=== PATIENT | female | born 1990 | race Hispanic/Latino ===

== ENCOUNTER 2017-01-02 11:43 | Emergency (ER) | payer SELFPAY ==
[2017-01-02 11:49] VITALS: O2SAT 100
--- NOTE | 2017-01-02 12:24 | ED PDOC ---
HPI: Female Pain Time Seen by Provider: 01/02/17 12:00 Chief Complaint (Nursing): Female Genitourinary Chief Complaint (Provider): abdominal pain History Per: Patient (26 y/o female h/o IUD since 2007 here with right lower quadrant pain gradual onset since yesterday while walking. Notes vaginal bleeding (menses 1 week early). Denies any dysuria/fevers/chills. No h/o sx. Has had chlamydia 7 years prior.) Past Medical History Reviewed: Historical Data, Nursing Documentation, Vital Signs Vital Signs: Last Vital Signs Temp 98.1 F 01/02/17 11:45 Pulse 97 H 01/02/17 11:45 Resp 19 01/02/17 11:45 BP 139/55 L 01/02/17 11:45 Pulse Ox 100 01/02/17 11:45 - Family History Family History: States: No Known Family Hx - Home Medications Home Medications: Ambulatory Orders Medication Instructions Recorded No Known Home Med 01/02/17 - Allergies Allergies/Adverse Reactions: Allergies Allergy/AdvReac Type Severity Reaction Status Date / Time No Known Allergies Allergy Verified 01/02/17 11:48 Review of Systems ROS Statement: Except As Marked, All Systems Reviewed And Found Negative Gastrointestinal: Positive for: Abdominal Pain Genitourinary Female: Positive for: Vaginal Bleeding Physical Exam - Reviewed Nursing Documentation Reviewed: Yes Vital Signs Reviewed: Yes - Physical Exam Appears: Positive for: Well, Non-toxic, No Acute Distress Head Exam: Positive for: ATRAUMATIC, NORMAL INSPECTION, NORMOCEPHALIC Skin: Positive for: Normal Color, Warm, DRY Eye Exam: Positive for: EOMI, Normal appearance, PERRL ENT: Positive for: Normal ENT Inspection Neck: Positive for: Normal, Painless ROM Cardiovascular/Chest: Positive for: Regular Rate, Rhythm Respiratory: Positive for: CNT, Normal Breath Sounds Gastrointestinal/Abdominal: Positive for: Normal Exam, Bowel Sounds, Soft Pelvic Exam: Positive for: Active Bleeding, Other (mild right adnexal tenderness.) Back: Positive for: Normal Inspection Extremity: Positive for: Normal ROM Neurologic/Psych: Positive for: Alert, Oriented - Laboratory Results Result Diagrams: 01/02/17 12:30 01/02/17 12:30 Urine POC: Positive - ECG O2 Sat by Pulse Oximetry: 100 - Progress ED Course And Treament: US PELVIC: (+) bilateral ovarian cyst complex 3cm approx; no iup noted A negative d/w Dr. Monzon who will be in ED to evaluate patient. Rhogam ordered. Patient would like to pursue . To early to determine whether this is ectopic. IUD removed by Dr. Monzon. Patient to f/u tuesday with her in office for repeat beta/evaluation. Disposition - Clinical Impression Clinical Impression: Threatened miscarriage in early - Patient ED Disposition Is Patient to be Admitted: No - Disposition Referrals: Jenelle Monzon MD [Staff Provider] - Disposition: Routine/Home Disposition Time: 16:55 Condition: FAIR Additional Instructions: FOLLOW UP WITH [facility] ON TUESDAY RETURNING FOR WORSENING PAIN/BLEEDING. Instructions: Threatened Miscarriage (ED)
[2017-01-02] MEDS ORDERED: Sodium Chloride 0.9% 1,000 ML IV STA (12:26)
[2017-01-02 13:30] LABS: BASO % 0.5 % (0.0-2.0); EOS % 0.6 % (0.0-4.0); HEMOGLOBIN 12.5 g/dL (12.0-16.0); LYMPH # 1.6 K/uL (1.0-4.3); LYMPH % 26.9 % (20.0-40.0); MEAN CORPUSCULAR HEMOGLOBIN 29.8 pg (27.0-31.0); MEAN CORPUSCULAR HGB CONC 33.2 g/dL (33.0-37.0); MEAN PLATELET VOLUME 8.2 fl (7.2-11.7); MONO # 0.6 K/uL (0.0-0.8); MONO % 10.6 % (0.0-10.0); NEUT # 3.7 K/uL (1.8-7.0); NEUT % 61.4 % (50.0-75.0); RBC 4.18 Mil/uL (3.80-5.20); RED CELL DISTRIBUTION WIDTH 13.5 % (11.5-14.5); WHITE BLOOD COUNT 6.1 K/uL (4.8-10.8)
--- NOTE | 2017-01-02 13:34 | US ---
Indication: Rule out ectopic Comparison: None available Technique: Transvaginal pelvic ultrasound. Findings: The uterus measures approximately 8.0 x 5.7 x 5.1 cm. Retroverted. Cervix length measures approximately 4.1 cm. Endometrium measures approximately 1.5 cm in diameter. IUD is present. No evidence of intrauterine gestational sac. The right ovary measures 5.0 x 2.0 x 3.0 cm and contains 2.8 x 3.5 x 3.0 cm complex cyst. The left ovary measures 5.2 x 4.4 x 3.4 cm and contains 2.9 x 3.1 x 2.3 cm complex cyst. Flow was demonstrated to both ovaries. Small pelvic free fluid. Impression: IUD present and appears in grossly satisfactory position. . No evidence of intrauterine gestational sac. If indeed the patient is based on serum beta HCG values, the sonographic findings represent either: Very early IUP; embryonic demise; ectopic gestation. Follow-up with serial quantitative serum beta HCG measurements and post OBGYN follow-up as clinically indicated, since ectopic gestation cannot be excluded based only on sonographic findings. 3.5 cm right and 3.1 cm left complex ovarian cysts. Small pelvic free fluid.
[2017-01-02 13:40] LABS: ALB/GLOB RATIO 1.7 (1.0-2.1); ALBUMIN 4.5 g/dL (3.5-5.0); ALT/SGPT 33 U/L (9-52); AST/SGOT 29 U/L (14-36); BLOOD UREA NITROGEN 7 mg/dl (7-17); CALCIUM 9.2 mg/dL (8.4-10.2); GFR AFRICAN-AMERICAN > 60; GFR NON-AFRICAN AMERICAN > 60
[2017-01-02 14:07] VITALS: BP 131/77; PULSE 80; RESP 18; TEMP 98
--- NOTE | 2017-01-02 16:41 | CP.PCM.CON ---
History of Present Illness - History of Present Illness History of Present Illness: Patient is a 26 yo nullparous female presenting with right sided abdominal pain. patient reports the pain started this morning, no nausea, no vomiting, no fever, some vaginal bleeding, patient is due for period next week, no SOB, no CP Past Patient History - Infectious Disease Hx of Infectious Diseases: None - Past Social History Smoking Status: Never Smoked - CARDIAC Hx Cardiac Disorders: No - PULMONARY Hx Respiratory Disorders: No - NEUROLOGICAL Hx Neurological Disorder: No - HEENT Hx HEENT Problems: No - RENAL Hx Chronic Kidney Disease: No - ENDOCRINE/METABOLIC Hx Endocrine Disorders: No - HEMATOLOGICAL/ONCOLOGICAL Hx Blood Disorders: No - INTEGUMENTARY Hx Dermatological Problems: No - MUSCULOSKELETAL/RHEUMATOLOGICAL Hx Musculoskeletal Disorders: No - GASTROINTESTINAL Hx Gastrointestinal Disorders: No - GENITOURINARY/GYNECOLOGICAL Hx Genitourinary Disorders: No - PSYCHIATRIC Hx Psychophysiologic Disorder: No Hx Substance Use: No - SURGICAL HISTORY Hx Surgeries: No - ANESTHESIA Hx Anesthesia: No Hx Anesthesia Reactions: No Hx Malignant Hyperthermia: No Meds Allergies/Adverse Reactions: Allergies Allergy/AdvReac Type Severity Reaction Status Date / Time No Known Allergies Allergy Verified 01/02/17 11:48 Physical Exam - Constitutional Appears: Well, Non-toxic - Head Exam Head Exam: ATRAUMATIC, NORMAL INSPECTION - Respiratory Exam Respiratory Exam: Clear to Auscultation Bilateral, NORMAL BREATHING PATTERN - Cardiovascular Exam Cardiovascular Exam: REGULAR RHYTHM, +S1, +S2 - GI/Abdominal Exam GI & Abdominal Exam: Normal Bowel Sounds, Soft Additional comments: non tender, non-distended, soft, no gaurding - Exam Additional comments: +strings noted at os, brownish discharge, no masses, no adnexal tenderness - Extremities Exam Extremities exam: Positive for: normal inspection Results - Vital Signs Recent Vital Signs: Last Vital Signs Temp 98.0 F 01/02/17 14:06 Pulse 80 01/02/17 14:06 Resp 18 01/02/17 14:06 BP 131/77 01/02/17 14:06 Pulse Ox 100 01/02/17 15:11 - Labs Result Diagrams: 01/02/17 12:30 01/02/17 12:30 Labs: Laboratory Results - last 24 hr 01/02/17 01/02/17 01/02/17 12:30 12:30 12:30 WBC 6.1 RBC 4.18 Hgb 12.5 Hct 37.6 MCV 90.0 MCH 29.8 MCHC 33.2 RDW 13.5 Plt Count 240 MPV 8.2 Neut % (Auto) 61.4 Lymph % (Auto) 26.9 [place] % (Auto) 10.6 H Eos % (Auto) 0.6 Baso % (Auto) 0.5 Neut # 3.7 Lymph # 1.6 [place] # 0.6 Eos # 0.0 Baso # 0.0 Sodium 137 Potassium 4.0 Chloride 107 Carbon Dioxide 21 L Anion Gap 13 BUN 7 Creatinine 0.7 Est GFR ( Amer) > 60 Est GFR (Non-Af Amer) > 60 Random Glucose 84 Calcium 9.2 Total Bilirubin 0.4 AST 29 ALT 33 Alkaline Phosphatase 39 Total Protein 7.3 Albumin 4.5 Globulin 2.7 Albumin/Globulin Ratio 1.7 Beta HCG, Quant 385.42 Blood Type Blood Type Confirm Antibody Screen BBK History Checked 01/02/17 01/02/17 12:30 13:13 WBC RBC Hgb Hct MCV MCH MCHC RDW Plt Count MPV Neut % (Auto) Lymph % (Auto) [place] % (Auto) Eos % (Auto) Baso % (Auto) Neut # Lymph # [place] # Eos # Baso # Sodium Potassium Chloride Carbon Dioxide Anion Gap BUN Creatinine Est GFR ( Amer) Est GFR (Non-Af Amer) Random Glucose Calcium Total Bilirubin AST ALT Alkaline Phosphatase Total Protein Albumin Globulin Albumin/Globulin Ratio Beta HCG, Quant Blood Type A NEGATIVE Blood Type Confirm A NEGATIVE Antibody Screen Negative BBK History Checked No verified bt Assessment & Plan - Assessment and Plan (Free Text) Assessment: A/P 29 yo nullparous female with of unknown location 1. Patient presented with right sided abdominal pain, on ultrasound, noted that patient has 2-3 complex cysts bilaterally. Each ovary is measuring around 5cm. Patient has Copper IUD in place, inserted in 2008. U/S shows that IUD is in correct position. BHCG = 385. 2. Explained to patient that there is a of unknown location at this point. Could be an ectopic, could be an early IUP, or since patient is having bleeding a week before her period it could be a miscarriage. Patient verbalized that it is a desired - explained to patient when there is a rare chance of with IUD, most likely situation is ectopic. Patient at this point would like to possibly keep an IUP if that develops, so can not offer Methotrexate at this time 3. Discussed with patient risks of removing IUD at this stage for a possible desired IUP vs keeping IUD in place and waiting to see location and viability of . Based on latest guidelines, removing the IUD as soon as possible reducing risk of infection, miscarriage and complications. Patient verbalized understanding that removing the IUD could also in of itself cause a miscarriage. Patient asked to have IUD removed. Speculum inserted, Strings noted at os and with ring forcep, IUD removed in entirety and shown to the patient 4. Patient to follow up in office in 2 days 01/04. Pain/bleeding/ectopic precautions given to patient 5. RH negative, to get shot of Rhogam before discharge. Patient otherwise clinically stable, VSS. - Date & Time Date: 01/02/17 Time: 16:41
== END 2017-01-02 17:13 | disposition home or self-care (01) ==
LOC: H.ER 11:43
DX: N93.9 Abnormal uterine and vaginal bleeding, unspecified (principal); O20.0 Threatened abortion; Z97.5 Presence of (intrauterine) contraceptive device; Z36 Encounter for antenatal screening of mother; Z3A.01 Less than 8 weeks gestation of pregnancy; Z30.432 Encounter for removal of intrauterine contraceptive device
CPT/HCPCS: 58301; 76817; 80053; 84702; 85025; 86850; 86900; 87491; 87591; 96360; 99283; J2792; J7040